=== PATIENT | male | born 1995 | race Caucasian/White ===

== ENCOUNTER 2020-12-07 23:41 | Emergency (ER) | payer BC ==
[~2020-12-07] VITALS: Ht 182.8 cm; Wt 59.0 kg
[2020-12-08 00:51] LABS: EOSINOPHILS % (AUTO) 0 % (0-10)
[2020-12-08 00:52] LABS: BASOPHILS % (AUTO) 0 % (0-10); HEMATOCRIT 42 % (40-54); HEMOGLOBIN 14.5 g/dL (13.3-17.7); LYMPHOCYTES # (AUTO) 1.3 10^3/uL (1.0-4.0); LYMPHOCYTES % (AUTO) 16 % (12-44); MEAN CORPUSCULAR HEMOGLOBIN 30 pg (25-34); MEAN CORPUSCULAR HGB CONC 34 g/dL (32-36); MEAN CORPUSCULAR VOLUME 86 fL (80-99); MEAN PLATELET VOLUME 10.1 fL (9.0-12.2); MONOCYTES # (AUTO) 0.9 10^3/uL (0.0-1.0); MONOCYTES % (AUTO) 11 % (0-12); NEUTROPHILS # (AUTO) 5.9 10^3/uL (1.8-7.8); NEUTROPHILS % (AUTO) 73 % (42-75); PLATELET COUNT 136 10^3/uL (130-400)
[2020-12-08 01:00] LABS: ALBUMIN 4.6 GM/DL (3.2-4.5)
[2020-12-08 01:01] LABS: CHLORIDE 97 MMOL/L (98-107); POTASSIUM 3.5 MMOL/L (3.6-5.0); SODIUM 138 MMOL/L (135-145)
[2020-12-08 01:02] LABS: CALCIUM 9.6 MG/DL (8.5-10.1)
[2020-12-08 01:03] LABS: GLUCOSE 98 MG/DL (70-105); TOTAL PROTEIN 7.8 GM/DL (6.4-8.2)
[2020-12-08 01:04] LABS: CARBON DIOXIDE 25 MMOL/L (21-32)
[2020-12-08 01:05] LABS: BILIRUBIN,TOTAL 1.2 MG/DL (0.1-1.0)
[2020-12-08 01:06] LABS: ALKALINE PHOSPHATASE 79 U/L (40-136)
[2020-12-08 01:07] LABS: CREATININE SERUM 1.11 MG/DL (0.60-1.30); GFR ESTIMATED 81
[2020-12-08 01:08] LABS: BUN/CREATININE RATIO 10
--- NOTE | 2020-12-08 01:08 | ED Cardiac General ---
History of Present Illness General Chief Complaint: Chest Wall Stated Complaint: CP,ARM PAIN,BLOOD PRESSURE 148/101 Nursing Triage Note: TO ED VIA POV AND AMBULATORY TO ROOM 7 WITH C/O CP X3 DAYS, RADIATES TO BILATERAL ARMS AND LEFT JAW. DENIES COUGH. SLIGHT NAUSEA. 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 Source: patient History of Present Illness Date Seen by Provider: Dec 08, 2020 Time Seen by Provider: 00:03 Initial Comments PT ARRIVES VIA POV FROM HOME, MOM ARRIVES LATER C/O MID CHEST PAIN X 3 DAYS PAIN IS CONSTANT AND WORSENS WITH LAYING DOWN PAIN OCCASIONALLY RADIATES DOWN BOTH ARMS AND OCCASIONALLY INTO LEFT JAW. IS NOT RADIATING AT THIS TIME STATES BLOOD PRESSURE WAS 148/101--DOES NOT NORMALLY CHECK BLOOD PRESSURE C/O SLIGHT NAUSEA, NO VOMITING C/O SLIGHT SHORTNESS OF BREATH NO DIZZINESS NO HEADACHE NO VISION CHANGES NO COUGH/CONGESTION/URI/SINUS SYMPTOMS NO PALPITATIONS NO FEVER/SWEATS/CHILLS NO SWELLING IN LEGS/ FEET OR PAIN IN CALVES NO PARESTHESIAS OR MOTOR DEFICITS NO SYNCOPE NO HISTORY OF SIMILAR TOOK 1 TYLENOL ABOUT 2 HOURS AGO, AND TOOK 1 IBUPROFEN EARLY YESTERDAY, WITH SOME RELIEF. STATES HE DRINKS AT LEAST A LITER OF POP A DAY--[place] STATES HE HAS BEEN UNDER ALOT OF STRESS--STATES HE HAS BEEN IN PROCESS OF GETTING A DIVORCE SINCE JUNE STATES HE CURRENTLY LIVES ALONE HAS 2 CHILDREN, "AND MAYBE A THIRD ON THE WAY" PT HAS HAD BOTH PFIZER COVID-19 VACCINES--LAST ONE IN JULY 2020 NO KNOWN SICK CONTACTS OR EXPOSURE TO COVID-19. PT HAS NOT SEEN A DR IN YEARS. DENIES ANY PAST MEDICAL PROBLEMS PT DOES NOT SMOKE OR DRINK OR DO DRUGS PCP: NONE Allergies and Home Medications Allergies Coded Allergies: No Known Drug Allergies (Unverified , 12/08/20) Patient Home Medication List Home Medication List Reviewed: Yes Review of Systems Review of Systems Constitutional: no symptoms reported EENTM: No Symptoms Reported Respiratory: See HPI; Denies Cough; Shortness of Air Cardiovascular: See HPI, Chest Pain; Denies Edema, Denies Irregular Heart Rate, Denies Lightheadedness, Denies Palpitations, Denies Syncope Gastrointestinal: See HPI; Denies Abdominal Pain, Denies Diarrhea; Nausea; Denies Vomiting Genitourinary: No Symptoms Reported Musculoskeletal: see HPI; No neck pain Skin: no symptoms reported Psychiatric/Neurological: No Symptoms Reported; Denies Headache, Denies Numbness, Denies Paresthesia, Denies Seizure, Denies Tingling, Denies Weakness Endocrine: No Symptoms Reported Hematologic/Lymphatic: No Symptoms Reported Past Mgyxhvz-Zfhpcl-Csiczi Hx Patient Social History Tobacco Use?: Yes Substance use?: Yes Substance type: Caffeine Alcohol Use?: No Pt feels they are or have been: No Immunizations Up To Date Second COVID19 Vaccination Keith: SECOND DOSE IN JULY 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 oz. kg; 17.00 BMI Method: General Appearance: No Apparent Distress, WD/WN, Anxious, Thin (VERT THIN), Other (DRITY) HEENT: PERRL/EOMI Neck: Normal Inspection Respiratory: Chest Non Tender, Normal Breath Sounds Cardiovascular: Regular Rate, Rhythm, No Edema, No JVD, No Murmur, Normal Peripheral Pulses Gastrointestinal: Non Tender, Soft Extremity: Normal Capillary Refill, Normal Inspection, Normal Range of Motion, Non Tender, No Calf Tenderness, No Pedal Edema Neurologic/Psychiatric: Alert, Oriented x3, No Motor/Sensory Deficits, heeler machine II- XII Norm as Tested, Other (MILDLY ANXIOUS) Skin: Normal Color, Warm/Dry Progress/Results/Core Measures Results/Orders Lab Results Laboratory Tests Test 12/08/20 00:29 Range/Units White Blood Count 8.0 4.3-11.0 10^3/uL Red Blood Count 4.90 4.30-5.52 10^6/uL Hemoglobin 14.5 13.3-17.7 g/dL Hematocrit 42 40-54 % Mean Corpuscular Volume 86 80-99 fL Mean Corpuscular Hemoglobin 30 25-34 pg Mean Corpuscular Hemoglobin Concent 34 32-36 g/dL Red Cell Distribution Width 11.3 10.0-14.5 % Platelet Count 136 130-400 10^3/uL Mean Platelet Volume 10.1 9.0-12.2 fL Immature Granulocyte % (Auto) 0 % Neutrophils (%) (Auto) 73 42-75 % Lymphocytes (%) (Auto) 16 12-44 % Monocytes (%) (Auto) 11 0-12 % Eosinophils (%) (Auto) 0 0-10 % Basophils (%) (Auto) 0 0-10 % Neutrophils # (Auto) 5.9 1.8-7.8 10^3/uL Lymphocytes # (Auto) 1.3 1.0-4.0 10^3/uL Monocytes # (Auto) 0.9 0.0-1.0 10^3/uL Eosinophils # (Auto) 0.0 0.0-0.3 10^3/uL Basophils # (Auto) 0.0 0.0-0.1 10^3/uL Immature Granulocyte # (Auto) 0.0 0.0-0.1 10^3/uL Percent Immature Platelet Fraction 5.5 0.0-7.6 % Sodium Level 138 135-145 MMOL/L Potassium Level 3.5 L 3.6-5.0 MMOL/L Chloride Level 97 L 98-107 MMOL/L Carbon Dioxide Level 25 21-32 MMOL/L Anion Gap 16 H 5-14 MMOL/L Blood Urea Nitrogen 11 7-18 MG/DL Creatinine 1.11 0.60-1.30 MG/DL Estimat Glomerular Filtration Rate 81 BUN/Creatinine Ratio 10 Glucose Level 98 70-105 MG/DL Calcium Level 9.6 8.5-10.1 MG/DL Corrected Calcium 8.5-10.1 MG/DL Magnesium Level 2.0 1.6-2.4 MG/DL Total Bilirubin 1.2 H 0.1-1.0 MG/DL Aspartate Amino Transf (AST/SGOT) 15 5-34 U/L Alanine Aminotransferase (ALT/SGPT) 11 0-55 U/L Alkaline Phosphatase 79 40-136 U/L Total Creatine Kinase 73 30-200 U/L Creatine Kinase MB 0.6 <6.6 NG/ML Myoglobin 39.7 10.0-92.0 NG/ML Troponin I < 0.028 <0.028 NG/ML B-Type Natriuretic Peptide < 10.0 <100.0 PG/ML Total Protein 7.8 6.4-8.2 GM/DL Albumin 4.6 H 3.2-4.5 GM/DL TSH [place] Testing 0.73 0.35-4.94 UIU/ML My Orders Orders - DOUGLAS WILSON DO Ed Iv/Invasive Line Start (12/08/20 00:11) Ekg Tracing (12/08/20 00:11) Monitor-Rhythm Ecg Trace Only (12/08/20 00:11) BNP (12/08/20 00:11) Cbc With Automated Diff (12/08/20 00:11) Comprehensive Metabolic Panel (12/08/20 00:11) Creatine Kinase (12/08/20 00:11) Creatine Kinase Mb (12/08/20 00:11) Drug Screen Stat (Urine) (12/08/20 00:11) Magnesium (12/08/20 00:11) Thyroid Analyzer (12/08/20 00:11) Ua Culture If Indicated (12/08/20 00:11) Myoglobin Serum (12/08/20 00:11) Troponin I (12/08/20 00:11) Chest 1 View, Ap/Pa Only (12/08/20 00:11) Hydroxyzine Cap/Tab (Vistaril) (12/08/20 01:45) Clonidine Tablet (Catapres Tablet) (12/08/20 01:45) Medications Given in ED Current Medications Medications Dose Ordered Sig/Immanuel Route Start Time Stop Time Status Last Admin Dose Admin Clonidine HCl 0.1 mg ONCE ONCE PO 12/08/20 01:45 12/08/20 01:48 DC 12/08/20 01:52 0.1 MG Hydroxyzine Pamoate 50 mg ONCE ONCE PO 12/08/20 01:45 12/08/20 01:48 DC 12/08/20 01:52 50 MG Vital Signs/I&O 12/08/20 12/08/20 00:00 02:50 Temp 37.6 37.6 Pulse 111 92 Resp 16 16 B/P (MAP) 154/106 (122) 152/104 (122) Pulse Ox 98 O2 Delivery Room Air Room Air Blood Pressure Mean: 122 Progress Progress Note : Progress Note GIVEN CLONIDINE AND HYDROXYZINE PT CALMER AND BP COMING DOWN. STATES HE IS FEELING BETTER NO COMPLAINT OF CHEST PAIN FOR ENTIRE ER STAY Initial ECG Impression Date: Dec 07, 2020 Initial ECG Impression Time: 23:58 Initial ECG Rate: 90 Initial ECG Rhythm: Normal Sinus Initial ECG Impression: Nonspecific Changes Initial ECG Comparisson: No Previous ECG Available Diagnostic Imaging Comments CXR--NO ACUTE PROCESS, PENDING RADIOLOGIST REVIEW Reviewed: Reviewed by Me Departure Impression Primary Impression: Chest pain Additional Impressions: HTN (hypertension) Anxiety Disposition: 01 HOME, SELF-CARE Condition: Improved Departure-Patient Inst. Decision time for Depature: 02:24 Referrals: NO,LOCAL PHYSICIAN (PCP/Family) Primary Care Physician Patient Instructions: DASH Diet, High Blood Pressure (DC), Anxiety, Adult ED, Chest Pain, Adult ED, Tips to Help You [place] in Uncertain Times Add. Discharge Instructions: HOME, REST NO CAFFEINE OR OTHER STIMULANTS FOLLOW UP WITH OF [facility] THIS WEEK FOR FURTHER CARE All discharge instructions reviewed with patient and/or family. Voiced understanding. Work/School Note: Work Release Form Date Seen in the Emergency Department: Dec 08, 2020 DOUGLAS WILSON DO Dec 08, 2020 01:08
[2020-12-08 01:09] LABS: ALANINE AMINOTRANSFERASE 11 U/L (0-55)
[2020-12-08 01:10] LABS: CREATINE KINASE 73 U/L (30-200)
[2020-12-08 01:17] LABS: CREATINE KINASE MB 0.6 NG/ML (<6.6)
[2020-12-08 01:29] LABS: TSH (THYROID ANALYZER) 0.73 UIU/ML (0.35-4.94)
[2020-12-08] MEDS ORDERED: hydrOXYzine (VISTARIL/ATARAX) 25 MG capsule/tablet PO ONE (01:45)
[2020-12-08] MEDS ORDERED: cloNIDine 0.1 MG (CATAPRES) TAB PO ONE (01:45)
[2020-12-08 02:50] VITALS: BP 152/104
--- NOTE | 2020-12-08 07:09 | Diagnostic Imaging Report ---
Portable erect AP chest at 1240 INDICATION: Hypertension There are no prior studies available for comparison. FINDINGS: The heart size is within normal limits. The lungs are clear. There is no evidence for failure, pneumonia or for a pleural effusion. The mediastinum is not widened. The osseous structures are intact. IMPRESSION: There is no evidence for active disease. Dictated by: Dictated on workstation # [id number]
== END 2020-12-08 02:50 | disposition home or self-care (01) ==
LOC: EDUNIT# 23:41 → ER 23:45
DX: R07.9 Chest pain, unspecified (principal); I10 Essential (primary) hypertension; F41.9 Anxiety disorder, unspecified
CPT/HCPCS: 36415; 71045; 80053; 82550; 82553; 83735; 83874; 83880; 84443; 84484; 85025; 93005; 93041

== ENCOUNTER 2021-11-19 16:33 | Emergency (ER) | payer SELFPAY ==
[~2021-11-19] VITALS: Ht 182 cm; Wt 59.0 kg
[2021-11-19] MEDS ORDERED: MELO7.5T46 PO (17:03)
--- NOTE | 2021-11-19 17:04 | ED Back Pain ---
General Chief Complaint: Back Problems Stated Complaint: BACK PAIN Nursing Triage Note: pt states occational back pain, no known cause hurting worse over the last few days. Source of Information: Patient Exam Limitations: No Limitations (IMTIAZ MILIAN APRN) History of Present Illness Date Seen by Provider: Nov 19, 2021 Time Seen by Provider: 17:00 Initial Comments Insidious onset of midline low back pain that does not radiate for several years that has been getting a little bit worse. Some days it bothers him in some days it does not. No fevers or chills. No trauma. Pain does not radiate down either leg. No loss of sensation of genitals no loss of bowel or bladder control. No history of cancer no history of IV drug use. Sometimes movement and twisting makes the pain worse. Sometimes Midol helps the pain. He has never had this looked at. Location: Lumbar Spine Timing/Duration: Other Severity: Mild Pain/Injury Location: Back Method of Injury: Unknown Associated Symptoms: denies symptoms (IMTIAZ MILIAN APRN) Allergies and Home Medications Allergies Coded Allergies: No Known Drug Allergies (Unverified , 12/08/20) Patient Home Medication List Home Medication List Reviewed: Yes (IMTIAZ MILIAN APRN) Meloxicam (Meloxicam) 7.5 Mg Tablet, 7.5 MG PO DAILY Prescribed by: IMTIAZ MILIAN on 11/19/21 1703 Review of Systems Constitutional: see HPI EENTM: see HPI Respiratory: no symptoms reported Cardiovascular: no symptoms reported Genitourinary: no symptoms reported Musculoskeletal: see HPI, back pain Skin: no symptoms reported (IMTIAZ MILIAN APRN) Past Uwypvxu-Pbuosm-Mcsviu Hx Patient Social History Substance use?: Yes Substance type: Caffeine, Nicotine Alcohol Use?: Yes Alcohol type: Hard Liquor Alcohol Frequency: Rarely (IMTIAZ MILIAN APRN) Immunizations Up To Date First/Initial COVID19 Vaccinat: SECOND DOSE IN JULY Second COVID19 Vaccination Keith: SECOND DOSE IN JULY Third COVID19 Vaccination Date: SECOND DOSE IN JULY 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 oz. kg; 17.00 BMI Method: General Appearance: No Apparent Distress, WD/WN, Thin Neck: Full Range of Motion, Normal Inspection Respiratory: No Accessory Muscle Use, No Respiratory Distress Gastrointestinal: Non Tender, Soft Back: Normal Inspection; No Decreased Range of Motion, No Muscle Spasm, No Vertebral Tenderness Extremity: Normal Capillary Refill, Normal Inspection Neurologic/Psychiatric: Alert, Oriented x3 Skin: Normal Color, Warm/Dry (IMTIAZ MILIAN APRN) Progress/Results/Core Measures Results/Orders Vital Signs/I&O 11/19/21 11/19/21 16:46 17:07 Temp 36.7 36.7 Pulse 77 77 Resp 18 18 B/P (MAP) 143/87 (105) 143/87 Pulse Ox 98 98 O2 Delivery Room Air Room Air (GABE SANDY MD) Blood Pressure Mean: 105 Departure Impression Primary Impression: Chronic low back pain Disposition: 01 HOME, SELF-CARE Condition: Stable Departure-Patient Inst. Decision time for Depature: 17:01 (IMTIAZ MILIAN APRN) Referrals: PAULA STACY BETHANY N MD HUDSON, CASEY V DO NO,LOCAL PHYSICIAN (PCP) Primary Care Physician EMILY WALKER MD Patient Instructions: Low Back Pain in Adults Add. Discharge Instructions: 1. Medication as directed. Follow-up with one of the physicians listed within 1 to 2 months for reevaluation and to make sure pain is improving. If no improvement they may wish to order MRI All discharge instructions reviewed with patient and/or family. Voiced understanding. Scripts Meloxicam (Meloxicam) 7.5 Mg Tablet 7.5 MG PO DAILY, #30 TAB . Prov: IMTIAZ MILIAN APRN 11/19/21 Work/School Note: Work Release Form Date Seen in the Emergency Department: Nov 19, 2021 Return to Work: Nov 20, 2021 ATTENDING PHYSICIAN NOTE: I was physically present as attending physician in the emergency department during the care of this patient, but I was not directly involved in the decision making or delivery of care for this patient. (BRUEGGEMANN,GABEIMTIAZ ISAAC APRN Nov 19, 2021 17:04 GABE SANDY MD Nov 19, 2021 18:34
[2021-11-19 17:07] VITALS: BP 143/87
== END 2021-11-19 17:07 | disposition home or self-care (01) ==
LOC: EDUNIT# 16:33 → ER 16:34
DX: G89.29 Other chronic pain (principal); M54.50 Low back pain, unspecified
CPT/HCPCS: 99281

== ENCOUNTER 2022-02-05 14:20 | Emergency (ER) | payer SELFPAY ==
[~2022-02-05] VITALS: Ht 182.9 cm; Wt 61.2 kg
[~2022-02-05 14:20] MED LIST: MELO7.5T46 PO
[2022-02-05] MEDS ORDERED: SULF1TAB38 PO (16:24)
--- NOTE | 2022-02-05 16:25 | ED Integumentary General ---
General Chief Complaint: Skin/Wound Problems Stated Complaint: INGROWN TOENAIL LEFT BIG TOE Nursing Triage Note: pt ambulatory to room. pt states his left great toe has been ingrown for 3 weeks. states pain, redness, swelling, and drainage has worsened. pt toe observed to be reddened and draining. pt denies other complaints Source: patient Exam Limitations: no limitations (DARREN HARRELL APRN) History of Present Illness Date Seen by Provider: Feb 05, 2022 Time Seen by Provider: 16:15 Initial Comments Patient is a previously healthy 26 yo M who presents to the ED with swelling, redness, and pain to the skin around his left great toenail. He states he has had some blood and pus coming from the area. Patient states the symptoms have been going on for 2 weeks. He has been applying peroxide to the area. No fever per patient. No history of similar symptoms in the past. (DARREN HARRELL APRN) Allergies and Home Medications Allergies Coded Allergies: No Known Drug Allergies (Unverified , 12/08/20) Patient Home Medication List Home Medication List Reviewed: Yes (DARREN HARRELL APRN) Meloxicam (Meloxicam) 7.5 Mg Tablet, 7.5 MG PO DAILY Prescribed by: IMTIAZ MILIAN on 11/19/21 1703 Sulfamethoxazole/Trimethoprim (Bactrim Ds Tablet) 1 Each Tablet, 1 EACH PO BID Prescribed by: Darren Harrell on 02/05/22 1624 Review of Systems Review of Systems Constitutional: no symptoms reported EENTM: no symptoms reported Respiratory: no symptoms reported Cardiovascular: no symptoms reported Gastrointestinal: no symptoms reported Genitourinary: no symptoms reported Musculoskeletal: no symptoms reported (DARREN HARRELL APRN) Past Kgvozit-Dynnmw-Kwdohf Hx Patient Social History Tobacco Use?: Yes Smokeless Tobacco Frequency: Current Everyday User Use of E-Cig and/or Vaping dev: No Substance use?: No Alcohol Use?: No (DARREN HARRELL APRN) Immunizations Up To Date First/Initial COVID19 Vaccinat: SECOND DOSE IN JULY Second COVID19 Vaccination Keith: SECOND DOSE IN JULY Third COVID19 Vaccination Date: SECOND DOSE IN JULY (DARREN HARRELL APRN) Physical Exam Vital Signs Vital Signs - First Documented 02/05/22 02/05/22 14:49 16:33 Temp 36.9 Pulse 80 Resp 16 B/P (MAP) 131/82 (98) Pulse Ox 100 O2 Delivery Room Air (GABE SANDY MD) Vital Signs Capillary Refill : (DARREN HARRELL APRN) General Appearance: WD/WN, no apparent distress HEENT: PERRL/EOMI, normal ENT inspection, TMs normal, pharynx normal Neck: non-tender, full range of motion, supple, normal inspection Cardiovascular: normal peripheral pulses, regular rate, rhythm, no edema, no gallop, no JVD, no murmur Respiratory: chest non-tender, lungs clear, normal breath sounds, no respiratory distress, no accessory muscle use Gastrointestinal: normal bowel sounds, non tender, soft, no organomegaly, no pulsatile mass Back: normal inspection, no CVA tenderness, no vertebral tenderness Neurologic/Psychiatric: dehydrogenation converter helper II-XII nml as tested, no motor/sensory deficits, alert, normal mood/affect, oriented x 3 Skin: normal color, warm/dry (DARREN HARRELL APRN) Progress/Results/Core Measures Results/Orders Medications Given in ED Current Medications Medications Dose Ordered Sig/Immanuel Route Start Time Stop Time Status Last Admin Dose Admin Trimethoprim/ Sulfamethoxazole 1 ea ONCE ONCE PO 02/05/22 16:30 02/05/22 16:31 DC 02/05/22 16:30 1 EA (GABE SANDY MD) Vital Signs/I&O 02/05/22 02/05/22 14:49 16:33 Temp 36.9 Pulse 80 65 Resp 16 14 B/P (MAP) 131/82 (98) 123/80 Pulse Ox 100 100 O2 Delivery Room Air (GABE SANDY MD) Blood Pressure Mean: 98 Progress Progress Note : Progress Note Patient is nontoxic and well hydrated on exam. Vital signs are reassuring. Area of concern is c/w paronychia of the lateral nail fold of the left great toe. Area is actively draining a small amount of purulence. Dried blood noted to the nail. No need for incision and drainage at this time. Will d/c home with recs for supportive care and follow-up with PCP for persistent symptoms. Discussed importance of frequent warm soaks. Will give prescription for Bactrim. Return precautions for urgent symptomology discussed. Patient verbalized understanding. (DARREN HARRELL APRN) Departure Impression Primary Impression: Paronychia of great toe of left foot Disposition: 01 HOME, SELF-CARE Condition: Stable Departure-Patient Inst. Decision time for Depature: 16:20 (DARREN HARRELL APRN) Referrals: NO,LOCAL PHYSICIAN (PCP/Family) Primary Care Physician Patient Instructions: Paronychia ED Scripts Sulfamethoxazole/Trimethoprim (Bactrim Ds Tablet) 1 Each Tablet 1 EACH PO BID for 7 Days, #14 TAB Prov: DARREN HARRELL APRN 02/05/22 ATTENDING PHYSICIAN NOTE: I was physically present as attending physician in the emergency department during the care of this patient, but I was not directly involved in the decision making or delivery of care for this patient. (GABE SANDY MD) DARREN HARRELL APRN Feb 05, 2022 16:25 GABE SANDY MD Feb 05, 2022 20:08
[2022-02-05] MEDS ORDERED: TRIM/SULFAMETH 160/800 (SEPTRA DS) TAB PO ONE (16:30)
[2022-02-05 16:33] VITALS: BP 123/80
== END 2022-02-05 16:33 | disposition home or self-care (01) ==
LOC: EDUNIT# 14:20 → ER 14:33
DX: L03.032 Cellulitis of left toe (principal); F17.200 Nicotine dependence, unspecified, uncomplicated
CPT/HCPCS: 99283

== ENCOUNTER 2022-03-28 15:33 | Emergency (ER) | payer SELFPAY ==
[~2022-03-28] VITALS: Ht 182.8 cm; Wt 61.2 kg
[~2022-03-28 15:33] MED LIST changes: +SULF1TAB38 PO
[2022-03-28] MEDS ORDERED: ONDA8TAB13 SL (16:09)
--- NOTE | 2022-03-28 16:10 | ED GI ---
General Stated Complaint: N/V,BODY ACHES,COUGH Source of Information: Patient Exam Limitations: No Limitations History of Present Illness Date Seen by Provider: Mar 28, 2022 Time Seen by Provider: 16:07 Initial Comments To ER with nausea vomiting body aches cough x4 days. Loose stools. No fevers. Several family members are ill. He was able to eat mild daily without nausea or vomiting afterwards just before he came here. Timing/Duration: 3-4 Days Radiation: No Radiation Activities at Onset: None Modifying Factors: Improves With Vomiting (You are basically ready for an flex) Associated Symptoms: Nausea/Vomiting Allergies and Home Medications Allergies Coded Allergies: No Known Drug Allergies (Unverified , 12/08/20) Patient Home Medication List Home Medication List Reviewed: Yes Meloxicam (Meloxicam) 7.5 Mg Tablet, 7.5 MG PO DAILY Prescribed by: IMTIAZ MILIAN on 11/19/21 1703 Ondansetron (Ondansetron Odt) 8 Mg Tab.rapdis, 8 MG SL Q6H PRN for NAUSEA/VOMITING Prescribed by: IMTIAZ MILIAN on 03/28/22 1609 Sulfamethoxazole/Trimethoprim (Bactrim Ds Tablet) 1 Each Tablet, 1 EACH PO BID Prescribed by: Darren Harrell on 02/05/22 1624 Review of Systems Review of Systems Constitutional: see HPI EENTM: No Symptoms Reported Respiratory: No Symptoms Reported Cardiovascular: No Symptoms Reported Gastrointestinal: See HPI; Denies Abdominal Pain; Diarrhea, Nausea, Vomiting Genitourinary: No Symptoms Reported Musculoskeletal: no symptoms reported Skin: no symptoms reported Psychiatric/Neurological: No Symptoms Reported Endocrine: No Symptoms Reported Hematologic/Lymphatic: No Symptoms Reported Past Vktbhhj-Dladbx-Buvpsz Hx Immunizations Up To Date First/Initial COVID19 Vaccinat: SECOND DOSE IN JULY Second COVID19 Vaccination Keith: SECOND DOSE IN JULY Third COVID19 Vaccination Date: SECOND DOSE IN JULY Physical Exam Vital Signs Vital Signs - First Documented 03/28/22 15:47 Temp 36.7 Pulse 100 Resp 20 B/P (MAP) 149/96 (113) Pulse Ox 100 O2 Delivery Room Air Capillary Refill : Height/Weight/BMI Height: '" Weight: lbs. oz. kg; 18.00 BMI Method: General Appearance: WD/WN, no apparent distress HEENT: PERRL/EOMI, normal ENT inspection Neck: non-tender, full range of motion Respiratory: no respiratory distress, no accessory muscle use Cardiovascular: regular rate, rhythm, no murmur Gastrointestinal: normal bowel sounds, non tender, soft Extremities: normal range of motion, non-tender Neurologic/Psychiatric: alert, normal mood/affect, oriented x 3 Skin: normal color, warm/dry Progress/Results/Core Measures Results/Orders Lab Results Laboratory Tests Test 03/28/22 15:51 03/28/22 16:16 Range/Units Influenza Type A (RT-PCR) Not Detected Not Detecte Influenza Type B (RT-PCR) Not Detected Not Detecte SARS-CoV-2 RNA (RT-PCR) Not Detected Not Detecte White Blood Count 5.6 4.3-11.0 10^3/uL Red Blood Count 5.03 4.30-5.52 10^6/uL Hemoglobin 14.9 13.3-17.7 g/dL Hematocrit 44 40-54 % Mean Corpuscular Volume 88 80-99 fL Mean Corpuscular Hemoglobin 30 25-34 pg Mean Corpuscular Hemoglobin Concent 34 32-36 g/dL Red Cell Distribution Width 11.9 10.0-14.5 % Platelet Count 185 130-400 10^3/uL Mean Platelet Volume 10.0 9.0-12.2 fL Immature Granulocyte % (Auto) 0 % Neutrophils (%) (Auto) 72 42-75 % Lymphocytes (%) (Auto) 19 12-44 % Monocytes (%) (Auto) 8 0-12 % Eosinophils (%) (Auto) 0 0-10 % Basophils (%) (Auto) 0 0-10 % Neutrophils # (Auto) 4.1 1.8-7.8 10^3/uL Lymphocytes # (Auto) 1.1 1.0-4.0 10^3/uL Monocytes # (Auto) 0.4 0.0-1.0 10^3/uL Eosinophils # (Auto) 0.0 0.0-0.3 10^3/uL Basophils # (Auto) 0.0 0.0-0.1 10^3/uL Immature Granulocyte # (Auto) 0.0 0.0-0.1 10^3/uL Sodium Level 140 135-145 MMOL/L Potassium Level 4.6 3.6-5.0 MMOL/L Chloride Level 102 98-107 MMOL/L Carbon Dioxide Level 26 21-32 MMOL/L Anion Gap 12 5-14 MMOL/L Blood Urea Nitrogen 12 7-18 MG/DL Creatinine 1.19 0.60-1.30 MG/DL Estimat Glomerular Filtration Rate 86 BUN/Creatinine Ratio 10 Glucose Level 95 70-105 MG/DL Calcium Level 9.9 8.5-10.1 MG/DL Corrected Calcium 8.5-10.1 MG/DL Total Bilirubin 0.5 0.1-1.0 MG/DL Aspartate Amino Transf (AST/SGOT) 25 5-34 U/L Alanine Aminotransferase (ALT/SGPT) 25 0-55 U/L Alkaline Phosphatase 82 40-136 U/L Total Protein 7.4 6.4-8.2 GM/DL Albumin 4.7 H 3.2-4.5 GM/DL My Orders Orders - IMTIAZ MILIAN APRN Cbc With Automated Diff (03/28/22 16:00) Comprehensive Metabolic Panel (03/28/22 16:00) Covid 19 Inhouse Test (03/28/22 16:03) Influenza A And B By Pcr (03/28/22 16:03) Ns Iv 1000 Ml (Sodium Chloride 0.9%) (03/28/22 16:15) Promethazine Injection (Phenergan Injec (03/28/22 16:15) Vital Signs/I&O 03/28/22 15:47 Temp 36.7 Pulse 100 Resp 20 B/P (MAP) 149/96 (113) Pulse Ox 100 O2 Delivery Room Air Departure Impression Primary Impression: Viral syndrome Disposition: 01 HOME, SELF-CARE Condition: Stable Departure-Patient Inst. Decision time for Depature: 16:09 Referrals: NO,LOCAL PHYSICIAN (PCP/Family) Primary Care Physician Patient Instructions: Viral Syndrome (DC) Add. Discharge Instructions: 1. Return to ER for any concerns. Diet as tolerated. Nausea medication as needed. Scripts Ondansetron (Ondansetron Odt) 8 Mg Tab.rapdis 8 MG SL Q6H PRN for NAUSEA/VOMITING, #10 TAB Prov: IMTIAZ MILIAN APRN 03/28/22 Work/School Note: Work Release Form Date Seen in the Emergency Department: Mar 28, 2022 Return to Work: Mar 30, 2022 IMTIAZ MILIAN APRN Mar 28, 2022 16:09
--- NOTE | 2022-03-28 16:11 | ED General ---
General Stated Complaint: N/V,BODY ACHES,COUGH Source of Information: Patient Exam Limitations: No Limitations (LORENZO GILLIS) History of Present Illness Date Seen by Provider: Mar 28, 2022 Time Seen by Provider: 16:05 Initial Comments Patient is a 26 y/o M who presents to ER today with CC of nausea and vomiting onset 2 days ago. Reports he vomited 5-6 times last night. Also states he has tried Midol and Tylenol with no relief of his symptoms. Last dose was Midol 250 mg at 10 pm last night. Patient also reports that his mother and his in-laws have been experiencing the same symptoms of nausea and vomiting over the weekend. Patient denies any abdominal pain currently. Denies fever or chills. Has an intermittent cough. He states he has been eating normally and having regular BMs and urination. Does not have any past medical history or take any m edication regularly. Timing/Duration: 1-2 Days Associated Systoms: Nausea/Vomiting (LORENZO GILLIS) Allergies and Home Medications Allergies Coded Allergies: No Known Drug Allergies (Unverified , 12/08/20) Patient Home Medication List Home Medication List Reviewed: Yes (LORENZO GILLIS) Meloxicam (Meloxicam) 7.5 Mg Tablet, 7.5 MG PO DAILY Prescribed by: IMTIAZ MILIAN on 11/19/21 1703 Ondansetron (Ondansetron Odt) 8 Mg Tab.rapdis, 8 MG SL Q6H PRN for NAUSEA/VOMITING Prescribed by: IMTIAZ MILIAN on 03/28/22 1609 Sulfamethoxazole/Trimethoprim (Bactrim Ds Tablet) 1 Each Tablet, 1 EACH PO BID Prescribed by: Darren Harrell on 02/05/22 1624 Review of Systems Review of Systems Constitutional: No chills, No fever EENTM: no symptoms reported Respiratory: cough Cardiovascular: no symptoms reported Gastrointestinal: No abdominal pain; nausea, vomiting Skin: no symptoms reported (LORENZO GILLIS) Past Katcknz-Kdmcmp-Ffbrqu Hx Patient Social History Tobacco Use?: Yes ("chew") Substance use?: No Alcohol Use?: No (LORENZO GILLIS) Immunizations Up To Date First/Initial COVID19 Vaccinat: SECOND DOSE IN July COVID19 Vaccination Keith: SECOND DOSE IN JULY Third COVID19 Vaccination Date: [facility] Physical Exam Vital Signs Vital Signs - First Documented 03/28/22 15:47 Temp 36.7 Pulse 100 Resp 20 B/P (MAP) 149/96 (113) Pulse Ox 100 O2 Delivery Room Air (IMTIAZ MILIAN APRN) Vital Signs Capillary Refill : ([facility]) Height, Weight, BMI Height: '" Weight: lbs. oz. kg; 18.00 BMI Method: General Appearance: No Apparent Distress, WD/WN Respiratory: Chest Non Tender, Lungs Clear, Normal Breath Sounds, No Accessory Muscle Use, No Respiratory Distress Cardiovascular: Regular Rate, Rhythm, No Murmur, Normal Peripheral Pulses Gastrointestinal: Normal Bowel Sounds, Non Tender, Soft Neurologic/Psychiatric: Alert, Oriented x3, Normal Mood/Affect Skin: Normal Color, Warm/Dry Lymphatic: No Adenopathy (cervical) [facility] Progress/Results/Core Measures Suspected Sepsis SIRS Temperature: Pulse: Respiratory Rate: Blood Pressure / Mean: ([facility]) Results/Orders Lab Results Laboratory Tests Test 03/28/22 15:51 03/28/22 16:16 Range/Units Influenza Type A (RT-PCR) Not Detected Not Detecte Influenza Type B (RT-PCR) Not Detected Not Detecte SARS-CoV-2 RNA (RT-PCR) Not Detected Not Detecte White Blood Count 5.6 4.3-11.0 10^3/uL Red Blood Count 5.03 4.30-5.52 10^6/uL Hemoglobin 14.9 13.3-17.7 g/dL Hematocrit 44 40-54 % Mean Corpuscular Volume 88 80-99 fL Mean Corpuscular Hemoglobin 30 25-34 pg Mean Corpuscular Hemoglobin Concent 34 32-36 g/dL Red Cell Distribution Width 11.9 10.0-14.5 % Platelet Count 185 130-400 10^3/uL Mean Platelet Volume 10.0 9.0-12.2 fL Immature Granulocyte % (Auto) 0 % Neutrophils (%) (Auto) 72 42-75 % Lymphocytes (%) (Auto) 19 12-44 % Monocytes (%) (Auto) 8 0-12 % Eosinophils (%) (Auto) 0 0-10 % Basophils (%) (Auto) 0 0-10 % Neutrophils # (Auto) 4.1 1.8-7.8 10^3/uL Lymphocytes # (Auto) 1.1 1.0-4.0 10^3/uL Monocytes # (Auto) 0.4 0.0-1.0 10^3/uL Eosinophils # (Auto) 0.0 0.0-0.3 10^3/uL Basophils # (Auto) 0.0 0.0-0.1 10^3/uL Immature Granulocyte # (Auto) 0.0 0.0-0.1 10^3/uL Sodium Level 140 135-145 MMOL/L Potassium Level 4.6 3.6-5.0 MMOL/L Chloride Level 102 98-107 MMOL/L Carbon Dioxide Level 26 21-32 MMOL/L Anion Gap 12 5-14 MMOL/L Blood Urea Nitrogen 12 7-18 MG/DL Creatinine 1.19 0.60-1.30 MG/DL Estimat Glomerular Filtration Rate 86 BUN/Creatinine Ratio 10 Glucose Level 95 70-105 MG/DL Calcium Level 9.9 8.5-10.1 MG/DL Corrected Calcium 8.5-10.1 MG/DL Total Bilirubin 0.5 0.1-1.0 MG/DL Aspartate Amino Transf (AST/SGOT) 25 5-34 U/L Alanine Aminotransferase (ALT/SGPT) 25 0-55 U/L Alkaline Phosphatase 82 40-136 U/L Total Protein 7.4 6.4-8.2 GM/DL Albumin 4.7 H 3.2-4.5 GM/DL (IMTIAZ MILIAN APRN) My Orders Orders - IMTIAZ MILIAN APRN Cbc With Automated Diff (03/28/22 16:00) Comprehensive Metabolic Panel (03/28/22 16:00) Covid 19 Inhouse Test (03/28/22 16:03) Influenza A And B By Pcr (03/28/22 16:03) Ns Iv 1000 Ml (Sodium Chloride 0.9%) (03/28/22 16:15) Promethazine Injection (Phenergan Injec (03/28/22 16:15) (IMTIAZ MILIAN APRN) Vital Signs/I&O 03/28/22 03/28/22 15:47 16:56 Temp 36.7 Pulse 100 85 Resp 20 20 B/P (MAP) 149/96 (113) 143/86 Pulse Ox 100 100 O2 Delivery Room Air Room Air (IMTIAZ MILIAN APRN) Vital Signs/I&O Capillary Refill : (LORENZO GILLIS) Departure Impression Primary Impression: Viral syndrome Disposition: 01 HOME, SELF-CARE Condition: Stable Departure-Patient Inst. Decision time for Depature: 21:04 (IMTIAZ MILIAN APRN) Referrals: NO,LOCAL PHYSICIAN (PCP/Family) Primary Care Physician Patient Instructions: Viral Syndrome (DC) Scripts Ondansetron (Ondansetron Odt) 8 Mg Tab.rapdis 8 MG SL Q6H PRN for NAUSEA/VOMITING, #10 TAB Prov: IMTIAZ MILIAN APRN 03/28/22 LORENZO GILLIS Mar 28, 2022 16:11 IMTIAZ MILIAN APRN Mar 28, 2022 21:04
[2022-03-28] MEDS ORDERED: NS IV 1000 ML 1,000 ML IV SCH (16:15)
[2022-03-28] MEDS ORDERED: PROMETHAZINE INJ 25 MG/ML (PHENERGAN) AMP IVP ONE (16:15)
[2022-03-28 16:23] LABS: BASOPHILS % (AUTO) 0 % (0-10); EOSINOPHILS % (AUTO) 0 % (0-10); HEMATOCRIT 44 % (40-54); HEMOGLOBIN 14.9 g/dL (13.3-17.7); LYMPHOCYTES # (AUTO) 1.1 10^3/uL (1.0-4.0); LYMPHOCYTES % (AUTO) 19 % (12-44); MEAN CORPUSCULAR HEMOGLOBIN 30 pg (25-34); MEAN CORPUSCULAR HGB CONC 34 g/dL (32-36); MEAN CORPUSCULAR VOLUME 88 fL (80-99); MONOCYTES # (AUTO) 0.4 10^3/uL (0.0-1.0); MONOCYTES % (AUTO) 8 % (0-12); NEUTROPHILS # (AUTO) 4.1 10^3/uL (1.8-7.8); NEUTROPHILS % (AUTO) 72 % (42-75); PLATELET COUNT 185 10^3/uL (130-400); WHITE BLOOD COUNT 5.6 10^3/uL (4.3-11.0)
[2022-03-28 16:36] LABS: ALBUMIN 4.7 GM/DL (3.2-4.5)
[2022-03-28 16:37] LABS: CHLORIDE 102 MMOL/L (98-107); POTASSIUM 4.6 MMOL/L (3.6-5.0); SODIUM 140 MMOL/L (135-145)
[2022-03-28 16:38] LABS: CALCIUM 9.9 MG/DL (8.5-10.1)
[2022-03-28 16:39] LABS: GLUCOSE 95 MG/DL (70-105); TOTAL PROTEIN 7.4 GM/DL (6.4-8.2)
[2022-03-28 16:40] LABS: CARBON DIOXIDE 26 MMOL/L (21-32)
[2022-03-28 16:41] LABS: BILIRUBIN,TOTAL 0.5 MG/DL (0.1-1.0)
[2022-03-28 16:42] LABS: ALKALINE PHOSPHATASE 82 U/L (40-136)
[2022-03-28 16:43] LABS: CREATININE SERUM 1.19 MG/DL (0.60-1.30); GFR ESTIMATED 86
[2022-03-28 16:44] LABS: BUN/CREATININE RATIO 10
[2022-03-28 16:46] LABS: ALANINE AMINOTRANSFERASE 25 U/L (0-55)
[2022-03-28 16:56] VITALS: BP 143/86
== END 2022-03-28 16:56 | disposition home or self-care (01) ==
LOC: EDUNIT# 15:33 → ER 15:35
DX: B34.9 Viral infection, unspecified (principal); Z20.822 Contact with and (suspected) exposure to COVID-19
CPT/HCPCS: 36415; 80053; 85025; 87636

== ENCOUNTER 2023-01-21 00:11 | Emergency (ER) | payer SELFPAY ==
[~2023-01-21] VITALS: Ht 182.9 cm; Wt 68.9 kg
[~2023-01-21 00:11] MED LIST changes: +ONDA8TAB13 SL
--- NOTE | 2023-01-21 00:47 | ED General ---
General Chief Complaint: COVID19 Suspect/Confirmed Stated Complaint: FEVER,BODY ACHES,VISION BLURRY,DUGGAN Nursing Triage Note: PT AMBULATORY TO ROOM WITH PT ARASH. PT REPORTS FEVER, BODY ACHES, HEADACHE, NAUSEA, AND BLURRY VISION SINCE MONDAY. STATES SYMPTOMS WERE WORSE TODAY. PT REPORTS HE TOOK IBUPROFEN AT 2330. PT IS A&OX4, SPEECH NORMAL ON ARRIVAL Source of Information: Patient, Family Exam Limitations: No Limitations (JOYCE WARREN) History of Present Illness Date Seen by Provider: Jan 21, 2023 Time Seen by Provider: 00:41 Initial Comments 27 yo M with h/o chronic lower back pain, anemia, and recurrent nosebleeds presents to the ED via personal vehicle for c/o myalgias, lower back ache, DUGGAN, nonproductive cough, nausea, subjective fevers, and chills that started 3 days ago and have been worsening. Pt's family is bedside. Pt states that DUGGAN is located in the frontal region, describes it as "throbbing" and constant. Rates pain 7/10. Pt took 2 tabs of ibuprofen at 11pm this evening with no relief. Admits to some photophobia and states that resting makes DUGGAN better. States he was recently in contact with a coworker who tested positive for COVID ~1 week ago. Also notes that he was diagnosed with the "stomach flu" ~1 week ago and was told that his symptoms should have resolved in 48hrs but nausea has persisted. Family states that pt's temp was never taken at home but was subjectively warm and temp was 38.1C in ED. Notes that he has h/o chronic lower back pain and feels like pain is just slightly worse than baseline. Denies vomiting, decreased appetite, diarrhea, vomiting, CP, SOA, diarrhea, rhinorrhea, and recent testing for flu or COVID. Timing/Duration: 2-3 Days Severity: Mild Modifying Factors: improves with Rest Associated Systoms: No Chest Pain; Cough, Fever/Chills, Headaches; No Loss of Appetite; Nausea/Vomiting; No Shortness of Air (JOYCE WARREN) Allergies and Home Medications Allergies Coded Allergies: No Known Drug Allergies (Unverified , 12/08/20) Patient Home Medication List Home Medication List Reviewed: Yes (JOYCE WARREN) Home Medication List Reviewed: Yes (LILLIE MARTINES MD) Meloxicam (Meloxicam) 7.5 Mg Tablet, 7.5 MG PO DAILY Prescribed by: IMTIAZ MILIAN on 11/19/21 1703 Ondansetron (Ondansetron Odt) 8 Mg Tab.rapdis, 8 MG SL Q6H PRN for NAUSEA/VOMITING Prescribed by: IMTIAZ MILIAN on 03/28/22 1609 Sulfamethoxazole/Trimethoprim (Bactrim Ds Tablet) 1 Each Tablet, 1 EACH PO BID Prescribed by: Darren Harrell on 02/05/22 1624 Review of Systems Review of Systems Constitutional: chills, fever EENTM: no symptoms reported Respiratory: cough (nonproductive); No short of breath Cardiovascular: No chest pain Gastrointestinal: No abdominal pain, No diarrhea, No loss of appetite; nausea; No vomiting Genitourinary: no symptoms reported Musculoskeletal: back pain (h/o chronic lower back pain in addition to current lower back ache), muscle pain (general myalgia ) Skin: no symptoms reported Psychiatric/Neurological: No Symptoms Reported Hematologic/Lymphatic: No Symptoms Reported Immunological/Allergic: no symptoms reported (JOYCE WARREN) All Other Systems Reviewed Negative Unless Noted: Yes (JOYCE WARREN) Past Zvdipgp-Ebojhq-Owceep Hx Patient Social History Tobacco Use?: Yes (chew) Smokeless Tobacco Frequency: Current Everyday User Use of E-Cig and/or Vaping dev: No Substance use?: No Alcohol Use?: No (JOYCE WARREN) Immunizations Up To Date Influenza Vaccine Up-to-Date: Yes; Up-to-Date First/Initial COVID19 Vaccinat: SECOND DOSE IN JULY Second COVID19 Vaccination Keith: SECOND DOSE IN JULY Third COVID19 Vaccination Date: SECOND DOSE IN JULY (JOYCE WARREN) Past Medical History Surgeries: No Respiratory: No Cardiac: Yes (Anemia ) Hypertension Neurological: No Genitourinary: No Gastrointestinal: Yes (H.pylori infection) Gastroesophageal Reflux Chronic Back Pain (lower back pain) Endocrine: No HEENT: No Cancer: No Psychosocial: No Integumentary: No (JOYCE WARREN) Family Medical History No Pertinent Family Hx (JOYCE WARREN) Physical Exam Vital Signs Vital Signs - First Documented 01/21/23 00:22 Temp 38.1 Pulse 128 Resp 22 B/P (MAP) 141/92 (108) Pulse Ox 97 (LILLIE MARTINES MD) Vital Signs Capillary Refill : (JOYCE WARREN) Height, Weight, BMI Height: '" Weight: lbs. oz. kg; 20.00 BMI Method: General Appearance: No Apparent Distress, WD/WN HEENT: PERRL/EOMI, TMs Normal, Pharynx Normal, Moist Mucous Membranes Respiratory: Lungs Clear, Normal Breath Sounds, No Accessory Muscle Use, No Res piratory Distress Cardiovascular: No Murmur, Tachycardia Gastrointestinal: Non Tender, Soft Neurologic/Psychiatric: Alert, Oriented x3, Normal Mood/Affect Skin: Normal Color, Warm/Dry Lymphatic: No Adenopathy (JOYCE WARREN) Progress/Results/Core Measures Suspected Sepsis SIRS Temperature: Pulse: 128 Respiratory Rate: 22 Blood Pressure 141 /92 Mean: 108 (JOYCE WARREN) Results/Orders Lab Results Laboratory Tests Test 01/21/23 00:25 Range/Units Influenza Type A (RT-PCR) Not Detected Not Detecte Influenza Type B (RT-PCR) Not Detected Not Detecte SARS-CoV-2 RNA (RT-PCR) Detected H Not Detecte (LILLIE MARTINES MD) My Orders Orders - LILLIE MARTINES MD Covid 19 Inhouse Test (01/21/23 00:50) Influenza A And B By Pcr (01/21/23 00:50) Ondansetron Oral Dissolve Tab (Ondanset (01/21/23 00:51) (LILLIE MARTINES MD) Vital Signs/I&O 01/21/23 00:22 Temp 38.1 Pulse 128 Resp 22 B/P (MAP) 141/92 (108) Pulse Ox 97 (LILLIE MARTINES MD) Vital Signs/I&O Capillary Refill : (JOYCE WARREN) Blood Pressure Mean: 108 Progress Note : Time: 01:26 Progress Note Patient seen and evaluated by me. I have reciewed the medical student's documentation and agree. Pertinent physical exam findings - Thin male, NAD. HR 107-112. +fever. Heart is regular, lungs clear. HEENT - congested nasal mucosa. appears adequately hydrated. Neck supple. No LE edema or calf tenderness. DDX based on H&P - flu, covid, nonsepcific viral syndrome Labs reviewed - positive for COVID. Patient counselled on tylenol and Ibuprofen dosingl. Encouraged to take some OTC decongestants such as Dayquil/nyquil and to push fluids. He has no significant co-morbidities to warrant need for Paxlovid. He is day3. Starts a new job on Monday - I advised him to mask. REturn precautions provided in both verbal and written format. All questions are sought and answered. (LILLIE MARTINES MD) Departure Impression Primary Impression: COVID-19 Disposition: 01 HOME, SELF-CARE Condition: Stable Departure-Patient Inst. Decision time for Depature: 01:29 (LILLIE MARTINES MD) Referrals: NO,LOCAL PHYSICIAN (PCP/Family) Primary Care Physician Patient Instructions: COVID-19 Home Care/Discharge Add. Discharge Instructions: Drink lots of fluids to stay well hydrated - propel/gatorade/pedialyte. You can take over the counter ibuprofen 3 tablets (600mg) every 6 hours with food for fever, headache and bodyaches. Over the counter generic Dayquil or Nyquil will help with sinus congestion and discomfort. Consider a nasal spray such as flonase to also help open up your sinuses - follow packaging instructions. If you develop worsening symptoms, shortness of breath, cough, vomiting - please return to the Emergency Department for re-evaluation. 5 days at home for quarantine and then 5 days out in public with mask. Verification and Attestation of Medical Student E/M Service A medical student performed and documented this service in my presence. I reviewed and verified all information documented by the medical student and made modifications to such information, when appropriate. I personally performed the physical exam and medical decision making. Lillie Martines, Jan 21, 2023,01:32 (LILLIE MARTINES MD) JOYCE WARREN Jan 21, 2023 00:47 LILLIE MARTINES MD Jan 21, 2023 01:32
[2023-01-21] MEDS ORDERED: ONDANSETRON 4 MG ORAL DISSOLVE TABLET PO STA (00:51)
[2023-01-21 01:36] VITALS: BP 121/67
== END 2023-01-21 01:39 | disposition home or self-care (01) ==
LOC: EDUNIT# 00:11 → ER 00:15
DX: U07.1 COVID-19 (principal); R50.9 Fever, unspecified; M54.50 Low back pain, unspecified; M79.10 Myalgia, unspecified site; R51.9 Headache, unspecified; R05.9 Cough, unspecified; F17.290 Nicotine dependence, other tobacco product, uncomplicated
CPT/HCPCS: 87636; 99283